=== PATIENT | male | born 1955 | race Caucasian/White ===

== ENCOUNTER 2016-07-08 16:53 | Emergency (ER) | payer OTHER ==
--- NOTE | 2016-07-08 17:29 | ED Physician Documentation ---
General Adult - HISTORIAN Historian: patient - HPI Stated Complaint: RUQ abdominal pain Chief Complaint: General Adult Additional Information: RUQ pain x 1 week, worse yesterday and today. Got a lot more severe this afternoon after he ate a meat and cheese stick. Pain feels like a balloon blowing up inside of him and radiates around to his back. No fever. - ROS CONST: no problems - PAST HX Past History: hypertension (no meds, no provider) Surgeries/Procedures: other (leonides chest tubes after trauma) Allergies/Adverse Reactions: Allergies Allergy/AdvReac Type Severity Reaction Status Date / Time No Known Allergies Allergy Verified 07/08/16 17:13 Home Medications: Ambulatory Orders Medication Instructions Recorded NK [NK] 07/08/16 - SOCIAL HX Smoking History: cigarettes (1 PPD 46 years; kidney stone removal) - FAMILY HX Family History: No - VITAL SIGNS Vital Signs: Vital Signs Temp Pulse Resp BP Pulse Ox 99.5 F 90 19 142/98 95 07/08/16 17:12 07/08/16 17:12 07/08/16 17:12 07/08/16 17:12 07/08/16 17:12 - REVIEWED ASSESSMENTS Nursing Assessment Reviewed: Yes Vitals Reviewed: Yes Progress - Progress Progress: Pa and lateral chest Clinical history : The right upper quadrant pain Technique pa and lateral upright Findings: The lung roblero are clear. I see no hilar or mediastinal mass. There is no pleural effusion or lesion of the bony thorax. There are calcified mediastinal lymph nodes. Impression: No acute pulmonary disease Electronically signed on July 08, 2016 5:26:14 PM CDT by: Jr [employer] benign. Pain well controlled. Will send home with two percocets for prn use , schedule for US tomorrow to look at GB, results to [facility]. Discussed options with pt and and they agree with plan. ED Results Lab/Radiology - Orders Orders: ED Orders Category Date Time Status ED Nursing Assessment 1T Care 07/08/16 17:09 Active CHEST 2 VIEW [CHEST P.A.&LAT 2 VIEWS] [RAD] Stat Exams 07/08/16 Ordered AMYLASE Routine Lab 07/08/16 Ordered CBC/PLATELET/DIFF Routine Lab 07/08/16 Ordered CMP Routine Lab 07/08/16 Ordered URINALYSIS Routine Lab 07/08/16 Ordered General Adult Physical Exam - PHYSICAL EXAM GENERAL APPEARANCE: moderate distress EENT: eye inspection normal, ENT inspection normal, pharynx normal, DENISE NECK: normal inspection, supple RESPIRATORY: no resp distress, chest non-tender, breath sounds normal CVS: reg rate & rhythm, heart sounds normal, no murmur ABDOMEN: soft, no organomegaly, normal bowel sounds, tenderness (RUQ, MCL) RECTAL: deferred BACK: normal inspection, no CVA tenderness SKIN: warm/dry, normal color EXTREMITIES: no evidence of injury NEURO: CN's nml as tested, motor nml, sensation nml Discharge Clincal Impression: RUQ abdominal pain Referrals: Primary Doctor,No [Primary Care Provider] - 2 Days Additional Instructions: Return to the ER if you cannot control your pain. You should receive a phone call in the morning to tell you what time to return to outpatient services for an ultrasound of you gall bladder. No fatty foods tonight. Home Medications: Ambulatory Orders NK [NK] 07/08/16 Condition: Good Disposition: 01 HOME, SELF-CARE Decision to Admit: NO Decision Time: 18:10
[2016-07-08] MEDS ORDERED: ONDANSETRON HCL/PF 4 MG/ 2ML VIAL ONE (17:30)
[2016-07-08] MEDS ORDERED: MORPHINE SULFATE 4 MG/ML DISP.SYRIN ONE (17:30)
[2016-07-08] MEDS ORDERED: 0.9 % SODIUM CHLORIDE 1,000 ML IV ONE (17:30)
[2016-07-08] MEDS: 0.9 % SODIUM CHLORIDE 1,000 ML IV ONE (17:33)
[2016-07-08] MEDS: ONDANSETRON HCL/PF 4 MG/ 2ML VIAL IVP ONE (17:34)
[2016-07-08] MEDS: MORPHINE SULFATE 4 MG/ML DISP.SYRIN IVP ONE (17:35)
[2016-07-08 17:38] LABS: BASOPHILS % 1.1 (0.0-1.5); EOSINOPHILS % 0.7 % (0.0-6.8); MEAN CORPUSCULAR VOLUME 85.7 fl (80.0-100.0); MONOCYTES % 4.9 % (0.0-11.0); NEUTROPHILS # 8.1 # k/uL (1.4-7.7)
--- NOTE | 2016-07-08 17:45 | Diagnostic Imaging Report ---
[facility] [address] [facility] [address], [place]. [address] Report Submission Date: July 08, 2016 5:26:14 PM CDT Patient Study Name: JUAN CARLOS CUTLER Date: July 08, 2016 5:13:33 PM CDT Modality Type: CR Gender: M Description: CHEST : 55 Institution: [facility] Physician: JULITO MALONEY - ER Pa and lateral chest Clinical history : The right upper quadrant pain Technique pa and lateral upright Findings: The lung roblero are clear. I see no hilar or mediastinal mass. There is no pleural effusion or lesion of the bony thorax. There are calcified mediastinal lymph nodes. Impression: No acute pulmonary disease Electronically signed on July 08, 2016 5:26:14 PM CDT by: Jr JOAQUIN
[2016-07-08 17:55] LABS: eGFR (African) > 60; eGFR (Non-African) > 60
[2016-07-08] MEDS: ONDANSETRON HCL 4 MG TAB.RAPDIS PO ONE (18:10)
[2016-07-08] MEDS: oxyCODONE/ACETAMINOPHEN 5/325 TABLET PO ONE (18:10)
[2016-07-08 18:35] VITALS: BP 126/81
[2016-07-09 06:05] LABS: APPEARANCE,URINE CLEAR (CLEAR); COLOR,URINE YELLOW (YELLOW); OCCULT BLOOD,URINE 2+ (NEGATIVE); PH URINE 5.5 (5.0 - 8.0); UROBILINOGEN URINE 0.2 Eu (0.2-1.0)
== END 2016-07-08 18:33 | disposition home or self-care (01) ==
LOC: ED 16:53
DX: R10.9 Unspecified abdominal pain (principal)
CPT/HCPCS: 71020; 80053; 81002; 82150; 85025; A9270; J2270; J2405; J7030; 96361; 96374; 96375; 96376; 99283; 99284; S1016

== ENCOUNTER 2016-07-09 08:45 | Outpatient (CLI) | payer OTHER ==
[2016-07-08 18:35] VITALS: BP 126/81
--- NOTE | 2016-07-09 14:19 | Diagnostic Imaging Report ---
[facility] [address] [facility] [address] [address] Report Submission Date: July 09, 2016 9:53:23 AM CDT Patient Study Name: JUAN CARLOS CUTLER Date: July 09, 2016 8:58:41 AM CDT Modality Type: US Gender: M Description: US ABD LIMITED : 55 Institution: [facility] Physician SKYLER MAXWELL (TRISHA) - ER Ultrasound of the upper abdomen CLINICAL HISTORY: Right upper quadrant abdominal pain. TECHNIQUE: Real-time sonography of the upper abdomen is performed in transverse and longitudinal views. FINDINGS: Gallbladder is normally distended. There is an echogenic gallstone in the gallbladder and biliary sludge. Gallstone is in the gallbladder neck and does not move with change in patient position. There is no gallbladder wall thickening or pericholecystic fluid. Common bile duct measures less than 3 mm in diameter. There is no intrahepatic ductal dilatation. The visualized pancreas and right kidney are unremarkable. There are multiple hepatic cysts some of which appear complex. Comparison with prior studies is recommended or follow-up to confirm stability. IMPRESSION: Cholelithiasis with biliary sludge. Multiple hepatic cysts some of which are complex. Recommend comparison with prior studies or follow-up ultrasound in 6 months to confirm stability. Electronically signed on July 09, 2016 9:53:23 AM CDT by: Jay Jay JOAQUIN
== END 2016-07-09 08:46 ==
LOC: RAD 08:45
PROVIDERS: ATTEND Nurse Practitioner
DX: K80.20 Calculus of gallbladder without cholecystitis without obstruction (principal); R10.11 Right upper quadrant pain
CPT/HCPCS: 76705